=== PATIENT | female | born 2000 | race Caucasian/White ===

== ENCOUNTER 2020-05-24 18:39 | Emergency (ER) | payer OTHER ==
[~2020-05-24] VITALS: Ht 175.3 cm; Wt 94.3 kg
[2020-05-24 18:49] VITALS: Ht 175.3 cm; Wt 94.3 kg
[2020-05-25 00:01] VITALS: BP 118/71
== END 2020-05-24 20:01 | disposition home or self-care (01) ==
LOC: ED 18:39
DX: S30.0XXA Contusion of lower back and pelvis, initial encounter (principal); S09.8XXA Other specified injuries of head, initial encounter; V80.010A Animal-rider injured by fall from or being thrown from horse in noncollision accident, initial encounter; Y93.89 Activity, other specified; Y92.89 Other specified places as the place of occurrence of the external cause; Y99.8 Other external cause status